=== PATIENT | female | born 1990 | race Caucasian/White ===

== ENCOUNTER 2017-08-25 13:00 | Outpatient (CLI) | payer OTHER ==
[~2017-08-25] VITALS: Ht 154.9 cm; Wt 65.9 kg
[2017-08-25] VITALS (11 sets, daily range): BP systolic 111–132; BP diastolic 73–83
[~2017-08-25 13:00] MED LIST: BACTRIM,SEPT1 TABLET PO; BENTYL10 MG PO; CIPROFLOXACIN H10 ML BOTH EYES; DOXYCYCLINE HY100 MG PO; ESCITALOPRAM OX10 MG PO; HYDROXYZINE PAM25 MG PO; KEFLEX500 MG PO; PROMETHAZINE HC25 M1 PO; VYVANSE20 MG PO
[2017-08-25] MEDS ORDERED: PRENATAL TABLE1 EAC3 PO (13:40)
== END 2017-08-25 21:25 | disposition home or self-care (01) ==
LOC: LDRP-OP 13:00 → 2WEST 13:02 → LDRP-OP 10-03 13:48
DX: O47.1 False labor at or after 37 completed weeks of gestation (principal); O41.03X0 Oligohydramnios, third trimester, not applicable or unspecified; O26.893 Other specified pregnancy related conditions, third trimester; Q61.3 Polycystic kidney, unspecified; O99.413 Diseases of the circulatory system complicating pregnancy, third trimester; I47.1 Supraventricular tachycardia; O99.343 Other mental disorders complicating pregnancy, third trimester; F41.9 Anxiety disorder, unspecified; F32.9 Major depressive disorder, single episode, unspecified; O99.283 Endocrine, nutritional and metabolic diseases complicating pregnancy, third trimester; E78.5 Hyperlipidemia, unspecified; Z83.3 Family history of diabetes mellitus; Z81.8 Family history of other mental and behavioral disorders; Z3A.38 38 weeks gestation of pregnancy
CPT/HCPCS: 59025; G0378; J2270; J2550

== ENCOUNTER 2017-08-26 03:01 | Inpatient (IN) | payer OTHER ==
[~2017-08-26] VITALS: Ht 154.9 cm; Wt 65.8 kg
[2017-08-26] VITALS (25 sets, daily range): BP systolic 94–191; BP diastolic 52–126
[~2017-08-26 03:01] MED LIST changes: +PRENATAL TABLE1 EAC3 PO
[2017-08-26 04:04] LABS: BASOPHIL (%) 0.3 % (0-1); EOSINOPHIL (%) 0.1 % (0-5); HEMATOCRIT 32.4 % (36.0-46.0); HEMOGLOBIN 11.1 G/DL (11.9-15.5); IMMATURE GRANULOCYTE (%) 0.7 % (0.0-0.7); LYMPHOCYTE (%) 17.3 % (15-42); LYMPHOCYTE COUNT 2.4 K/uL (1.0-2.8); MCH 29.2 PG (29.0-34.0); MCHC 34.3 G/DL (30.0-36.0); MCV 85.3 FL (83-99); MONOCYTE (%) 6.7 % (3-12); MONOCYTE COUNT 0.9 K/uL (0-0.8); NEUTROPHIL (%) 74.9 % (45-76); NEUTROPHIL COUNT 10.2 K/uL (1.8-6.4); PLATELET COUNT 198 K/uL (156-360); RBC DIS.WIDTH-CV 12.5 % (11.8-14.6); RBC DIS.WIDTH-SD 38.7 % (39-53); WHITE BLOOD COUNT 13.7 K/uL (4.1-10.2)
[2017-08-26 13:07] LABS: HEMATOCRIT 31.7 % (36.0-46.0); HEMOGLOBIN 10.4 G/DL (11.9-15.5); MCH 28.9 PG (29.0-34.0); MCHC 32.8 G/DL (30.0-36.0); MCV 88.1 FL (83-99); PLATELET COUNT 189 K/uL (156-360); RBC DIS.WIDTH-CV 12.6 % (11.8-14.6); RBC DIS.WIDTH-SD 40.1 % (39-53); WHITE BLOOD COUNT 12.6 K/uL (4.1-10.2)
[2017-08-27 06:42] LABS: BASOPHIL (%) 0.2 % (0-1); EOSINOPHIL (%) 0.2 % (0-5); HEMOGLOBIN 9.2 G/DL (11.9-15.5); IMMATURE GRANULOCYTE (%) 0.7 % (0.0-0.7); LYMPHOCYTE (%) 21.2 % (15-42); LYMPHOCYTE COUNT 3.6 K/uL (1.0-2.8); MCH 28.8 PG (29.0-34.0); MCHC 32.9 G/DL (30.0-36.0); MCV 87.8 FL (83-99); MONOCYTE (%) 6.5 % (3-12); MONOCYTE COUNT 1.1 K/uL (0-0.8); NEUTROPHIL (%) 71.2 % (45-76); PLATELET COUNT 187 K/uL (156-360); RBC DIS.WIDTH-CV 12.8 % (11.8-14.6); RBC DIS.WIDTH-SD 40.2 % (39-53); RED BLOOD COUNT 3.19 M/uL (3.80-5.20); WHITE BLOOD COUNT 16.8 K/uL (4.1-10.2)
[2017-08-27 22:35] VITALS: BP 106/55
== END 2017-08-28 14:35 | disposition home or self-care (01) | DRG 775 ==
LOC: LDRP-OP 03:01 → 2WEST 03:02 → LDRP-OP 10-03 23:14
PROVIDERS: Advanced Practice Midwife; Midwife; Obstetrics & Gynecology
DX: O71.4 Obstetric high vaginal laceration alone (principal); O69.81X0 Labor and delivery complicated by cord around neck, without compression, not applicable or unspecified; O99.284 Endocrine, nutritional and metabolic diseases complicating childbirth; E78.5 Hyperlipidemia, unspecified; Q61.3 Polycystic kidney, unspecified; Z3A.39 39 weeks gestation of pregnancy; Z37.0 Single live birth
CPT/HCPCS: 59025; 85025; 85027; C1755; G0378; J0595; J2270; J2405; J2550; J3010; J7120